=== PATIENT | male | born 1980 | race Two or more races ===

== ENCOUNTER 2018-12-03 20:50 | Emergency (ER) | payer OTHER ==
[~2018-12-03] VITALS: Ht 172.7 cm; Wt 86.2 kg
--- NOTE | 2018-12-03 21:00 | NUR ---
PT RECEIVED VIA JACK IN HANDCUFF ACCOMPANIED BY AL, ENDORSED OF SI CONCERNS WITH MULTIPLE LACERATIONS ON B/L WRISTS WRAPPED WITH DRESSING EN ROUTE PT IS ON SUPINE WITH FLAT AFFECT SECURITY 1ON1 AT BEDSIDE MD AT BEDSIDE FOR HX AND PHYSICAL SIDERAILSX2 UP, BED AT LOWEST POSITION Addendum: 12/04/18 at 0006 by MARICASTIL YUMIKO AGUILAR AWARE. AT BEDSIDE FOR PSYCHE EVALUATION
[2018-12-03] MEDS ORDERED: DIAZ10TA4 PO (21:20)
[2018-12-03] MEDS ORDERED: GABA600T12 PO (21:20)
--- NOTE | 2018-12-03 21:29 | NUR ---
REFUSING EKG, REFUSING BLOOD DRAW PT REASSURED AND REORIENTED PT DENTON ALAMO
[2018-12-03] MEDS ORDERED: LIDOCAINE HCL 1% 20 ML VIAL IJ ONE (21:30)
[2018-12-03] MEDS ORDERED: IV NORMAL SALINE 1000 ML BAG IV ONE (21:30)
[2018-12-03] MEDS ORDERED: TDAP DIPH,PERTUSS,TET VAC/PF 0.5 ML DISP.SYRIN IM ONE ×2 (21:30→21:38)
[2018-12-03] MEDS ORDERED: HALOPERIDOL LACTATE 5 MG/1 ML VIAL ONE ×2 (21:44→21:51)
[2018-12-03] MEDS ORDERED: LORAZEPAM 2 MG/1 ML VIAL ONE (21:44)
[2018-12-03] MEDS ORDERED: LORAZEPAM 2 MG/1 ML VIAL IM ONE (21:45)
[2018-12-03] MEDS ORDERED: HALOPERIDOL LACTATE 5 MG/1 ML VIAL IM ONE ×2 (21:45→22:00)
--- NOTE | 2018-12-03 21:54 | NUR ---
PT REFUSED EKG, BLOOD DRAW AND STARTED BECOMING COMBATIVE, YELLING AND GOT UP FROM JACK ALMARAZ INITIATED. +2 SECURITY RESPONDED PROTOCOL INITIATED AND PROMPTED 4PT RESTRAINTS REASSESSED Q15 KEPT SAFE MONITORED ACCORDINGLY
[2018-12-03] MEDS ORDERED: diphenhydrAMINE 50 MG/1 ML VIAL IV ONE (23:15)
[2018-12-03] MEDS ORDERED: diphenhydrAMINE 50 MG/1 ML VIAL ONE (23:17)
[2018-12-03 23:19] LABS: *BILIRUBIN,URIN 1+ (NEGATIVE); *BLOOD, URINE 1+ (NEGATIVE); *CLARITY,URINE CLEAR (CLEAR); *COLOR,URINE YELLOW (YELLOW); *KETONES,URINE TRACE (NEGATIVE); LEUKOCYTE ESTERASE ,URINE NEGATIVE (NEGATIVE); NITRITE, URINE NEGATIVE (NEGATIVE); UGLUCOSE NEGATIVE (NEGATIVE)
[2018-12-03 23:20] LABS: BASOPHILS % (AUTO) 0.3 % (0.0-2.0); EOSINOPHILS % (AUTO) 0.3 % (0.0-7.0); HEMATOCRIT 39.4 % (36.7-47.1); HEMOGLOBIN 13.4 g/dL (12.5-16.3); LYMPHOCYTES # (AUTO) 2.4 K/uL (20.0-40.0); LYMPHOCYTES % (AUTO) 22.9 % (20.5-51.5); MEAN CORPUSCULAR HEMOGLOBIN 30.3 uug (23.8-33.4); MEAN CORPUSCULAR HGB CONC 34 g/dL (32.5-36.3); MEAN CORPUSCULAR VOLUME 89.1 fL (73.0-96.2); MONOCYTES # (AUTO) 0.4 K/uL (2.0-10.0); MONOCYTES % (AUTO) 3.7 % (0.0-11.0); NEUTROPHILS # (AUTO) 7.5 K/uL (1.8-8.9); NEUTROPHILS % (AUTO) 72.8 % (38.5-71.5); PLATELET COUNT (AUTO) 198 K/uL (152-348); RED BLOOD CELL COUNT(AUTO) 4.42 MIL/uL (4.06-5.63); WHITE BLOOD COUNT (AUTO) 10.3 K/uL (3.6-10.2)
[2018-12-03 23:27] LABS: CARBON DIOXIDE 19 mmol/L (21-32); CHLORIDE 108 mmol/L (98-107); CREATININE 1.4 mg/dL (0.6-1.3); GLUCOSE 108 mg/dL (74-106); POTASSIUM 3.4 mmol/L (3.5-5.1); UREA NITROGEN, BLOOD 15 mg/dL (7-18)
--- NOTE | 2018-12-03 23:30 | NUR ---
1ON1 SITTER AT BEDSIDE PER NURSING OFFICE ASSIGNMENT REASSESSED 4PT RESTRAINTS Q2. ROTATED POINTS Q2, VISAUL CHECK [id number] PT IS ON SUPINE SHIFTED TO RIGHT LATERAL RECUMBENT, PT IS ASLEEP. MONITORED ACCORDINGLY IVF INFUSING WELL AND INTACT TO LEFT AC G18
[2018-12-03 23:36] LABS: BACTERIA,URINE NONE SEEN /HPF (NONE SEEN); SQUAMOUS EPITHELIAL CELL,UR MODERATE /HPF (NONE SEEN)
[2018-12-03 23:37] LABS: *AMPHETAMINE, URINE POSITIVE (NEGATIVE); *BARBITURATE, URINE NEGATIVE (NEGATIVE); *CANNABINOID, URINE POSITIVE (NEGATIVE); *COCCAINE, URINE NEGATIVE (NEGATIVE); *OPIATE, URINE NEGATIVE (NEGATIVE); *PHENCYCLIDINE SCREEN,URINE NEGATIVE (NEGATIVE)
[2018-12-03 23:39] LABS: ETHANOL < 3 MG/DL (0-0)
[2018-12-03 23:41] LABS: THYROID STIMULATING HORMONE 0.268 mIU/mL (0.358-3.740)
[2018-12-03 23:42] LABS: ALANINE AMINOTRANSFERASE 13 U/L (16-63); ALKALINE PHOSPHATASE 74 U/L (50-136); ASPARTATE AMINOTRANSFERASE 19 U/L (15-37); BILIRUBIN,DIRECT 0.1 mg/dL (0.0-0.2); BILIRUBIN,TOTAL 0.3 mg/dL (0.2-1.0); CREATINE KINASE, TOTAL 275 U/L (39-308); TOTAL PROTEIN, SERUM 6.6 g/dL (6.4-8.2)
--- NOTE | 2018-12-04 00:14 | NUR ---
1ON1 SITTER AT BEDSIDE PER NURSING OFFICE ASSIGNMENT REASSESSED 4PT RESTRAINTS Q2. ROTATED POINTS Q2, VISUAL CHECK [id number] PT IS ON RIGHT LATERAL RECUMBENT SHIFTED TO SUPINE, PT IS ASLEEP. MONITORED ACCORDINGLY Addendum: 12/04/18 at 0015 by MARICASTIL SIDERAILSX2 UP, BED AT LOWEST POSITION. IVF DC SHIFTED TO SALINE LOCK
[2018-12-04 00:31] LABS: ACETAMINOPHEN < 2.0 ug/mL (10-30)
--- NOTE | 2018-12-04 01:05 | NUR ---
Dr. Holt speaking with patient's family privately.
--- NOTE | 2018-12-04 01:06 | NUR ---
1ON1 SITTER AT BEDSIDE PER NURSING OFFICE ASSIGNMENT REASSESSED 4PT RESTRAINTS Q2. ROTATED POINTS Q2, VISUAL CHECK [id number] PT IS ON RIGHT LATERAL RECUMBENT SHIFTED TO SUPINE, PT IS ASLEEP. MONITORED ACCORDINGLY PT MOTHER AND BROTHER UPDATING WITH DANN
[2018-12-04] MEDS ORDERED: IV NS 1000 ML 1,000 ML IV ONE (01:30)
--- NOTE | 2018-12-04 02:19 | NUR ---
1ON1 SITTER AT BEDSIDE PER NURSING OFFICE ASSIGNMENT REASSESSED 4PT RESTRAINTS Q2. ROTATED POINTS Q2, VISUAL CHECK [id number] PT IS ON SUPINE SHIFTEF TO LEFT LATERAL RECUMBENT SHIFTED, PT IS ASLEEP BUT EASILY ROUSED. MONITORED ACCORDINGLY
[2018-12-04 02:58] LABS: POTASSIUM 3.4 mmol/L (3.5-5.1)
--- NOTE | 2018-12-04 03:33 | NUR ---
1ON1 SITTER AT BEDSIDE PER NURSING OFFICE ASSIGNMENT REASSESSED 4PT RESTRAINTS Q2. ROTATED POINTS Q2, VISUAL CHECK [id number] PT IS ON SUPINE SHIFTEF TO LEFT LATERAL RECUMBENT SHIFTED, PT IS ASLEEP BUT EASILY ROUSED. MONITORED ACCORDINGLY ERMD AT BEDSIDE TO DO LAC REPAIR OF RIGHT WRIST +IRRIGATION DONE, +STERILE TECHNIQUE Addendum: 12/04/18 at 0511 by JOSY TRIAL OF SHIFTING TO 4PT TO 3PT RESTRAINT DONE. PT IS STILL RESISTING MEDICAL CARE AND PLACED BACK TO 4 PT
[2018-12-04] MEDS ORDERED: NEOMY/BACITRA/POLYMYXIN B OINT UD PACKET TP ONE ×2 (04:07→05:45)
--- NOTE | 2018-12-04 04:09 | NUR ---
Pt medically cleared by Dr. Holt. Called Steve Solorio [facility] for pt psych evaluation, states he will see the patient in the AM when the sun is up.
--- NOTE | 2018-12-04 04:27 | NUR ---
1ON1 SITTER AT BEDSIDE PER NURSING OFFICE ASSIGNMENT REASSESSED 4PT RESTRAINTS Q2. ROTATED POINTS Q2, VISUAL CHECK [id number] PT IS ON LEFT LATERAL RECUMBENT SHIFTED TO RIGHT LATERAL RECUMBENT PT IS ASLEEP BUT EASILY ROUSED. MONITORED ACCORDINGLY ERMD AT BEDSIDE TO DO LAC REPAIR OF LEFT WRIST +IRRIGATION DONE, +STERILE TECHNIQUE
--- NOTE | 2018-12-04 05:55 | NUR ---
1ON1 SITTER AT BEDSIDE PER NURSING OFFICE ASSIGNMENT REASSESSED 4PT RESTRAINTS Q2. ROTATED POINTS Q2, VISUAL CHECK [id number] PT IS ON RIGHT LATERAL RECUMBENT SHIFTED TO SUPINE PT IS ASLEEP BUT EASILY ROUSED. MONITORED ACCORDINGLY
--- NOTE | 2018-12-04 06:57 | NUR ---
TRIAL OF 2PT RESTRAINT (OFF ON LEFT HAND AND RIGHT LEG) PT ASLEEP BUT EASILY ROUSED. PT IS CALM, NAD 1ON1 SITTER AT BEDSIDE. SIDERAILSX2 UP, BED AT LOWEST POSITION MD AWARE. HAND OFF AND SBAR GIVEN TO INCOMING DAY SHIFT RN
--- NOTE | 2018-12-04 08:30 | NUR ---
PT APPEARS TO BE ABLE TO CONTROL BEHAVIOR, SAYS FEELS BETTER, RESTRAINT REMOVED, CONTINUE WITH ONE TO ONE SITTER AND MONITORING SAFETY AND BEHAVIOR.
--- NOTE | 2018-12-04 08:39 | NUR ---
PT AWAKE, BF AT BEDSIDE WITH ONE TO ONE SITTER ASSISSTANCE.
--- NOTE | 2018-12-04 09:18 | NUR ---
Radha burk in ED - 12/04/18 at 0919 by ANN PT APPEARS TO BE ABLE TO CONTROL BEHAVIOR, RESTRAINTS REMOVED, CONTINUE WITH ONE TO ONE SITTER AND MONITORING FOR SAFETY. VSS.
--- NOTE | 2018-12-04 09:33 | NUR ---
CALLED NICKO SMITH FOR PSYCH EVAL AND LEFT A MESSAGE.
--- NOTE | 2018-12-04 11:10 | NUR ---
NICKO SMITH AT BEDSIDE
--- NOTE | 2018-12-04 11:30 | NUR ---
NICKO SMITH AT BEDSIDE TO EVALUATE THE PT.
--- NOTE | 2018-12-04 12:07 | NUR ---
MARTA BOWEN PROVIDED FOR PT.
--- NOTE | 2018-12-04 12:20 | NUR ---
Patient discharged to home in stable conditon. Written and verbal after care instructions given. Patient verbalizes understanding of instructions.PT WALKS IN STEADY GAIT. PT AXOX4. PT CALM AND COMFORTABLE, DENEIS ANY COMPLAIN. HEPLOCK OUT, SUTURED WOUND DRESSING RECHECKED, SUTURES INTACT, REWRAPPED THE WOUND.
[2018-12-04 12:23] VITALS: BP 121/81
[2018-12-05 05:08] LABS: HEPATITIS B SURFACE AB Reactive (.); HEPATITIS B SURFACE AG Negative (Negative)
== END 2018-12-04 12:23 | disposition home or self-care (01) ==
LOC: ER 20:52
DX: S61.511A Laceration without foreign body of right wrist, initial encounter (principal); T14.91XA Suicide attempt, initial encounter; F15.10 Other stimulant abuse, uncomplicated; Z79.899 Other long term (current) drug therapy; X83.8XXA Intentional self-harm by other specified means, initial encounter; Y93.89 Activity, other specified; Y92.89 Other specified places as the place of occurrence of the external cause; Y99.8 Other external cause status
CPT/HCPCS: 12004; 36415 ×2; 80048 ×2; 80076; 80307; 81000; 81001; 82550; 83605 ×2; 84443; 85025; 86706; 86803; 87340; 87806; 90471; 90715; 93005; 96372 ×3; 96374; 99284; G0480 ×2; G0481; J1200; J1630 ×2; J2060; J3490 ×2; A4217; A4663; C1758; J7030